=== PATIENT | female | born 1940 | race African-American/Black ===

== ENCOUNTER 2021-02-21 09:45 | Emergency (ER) | payer MEDICARE, OTHER ==
[~2021-02-21] VITALS: Ht 152.4 cm; Wt 63.0 kg
--- NOTE | 2021-02-21 10:28 | PHYS DOC ---
Past History Past Medical History: Diabetes Alcohol Use: Rarely General Adult EDM: Chief Complaint: MULTIPLE COMPLAINTS HPI: HPI: 80-year-old female presents with dizziness and decreased activity level. Patient tells me that she has not felt well for the last 5 days. She doesn't have any specific description other than feeling dizzy when she gets up and generally weak. The dizziness as a lightheaded, off-balance feeling. She has "aching all over which is probably arthritis." She did have a fall today where she got dizzy, leaned against the bed which moved a little bit and she slowly slumped to the floor. She has no injuries from this. The patient has had significantly decreased appetite. She is only been eating diabetic shakes. The patient was not taking any of her medications for an unknown amount time. She restarted her Metformin on Wednesday. She denies dysuria or increased urinary frequency. She denies nausea, vomiting, diarrhea. Review of Systems: Review of Systems: Constitutional: Denies fever or chills. Decreased appetite Eyes: Denies change in visual acuity HENT: Denies nasal congestion or sore throat Respiratory: Denies cough or shortness of breath Cardiovascular: Denies chest pain or edema GI: Denies abdominal pain, nausea, vomiting, bloody stools or diarrhea : Denies dysuria Musculoskeletal: Multijoint pain. Integument: Denies rash Neurologic: Dizziness. Denies headache, focal weakness or sensory changes Endocrine: Denies polyuria or polydipsia Lymphatic: Denies swollen glands Psychiatric: Denies depression or anxiety Physical Exam: PE: Constitutional: Well developed, well nourished, no acute distress, non-toxic appearance. [] HENT: Normocephalic, atraumatic, bilateral external ears normal, oropharynx moist, no oral exudates, nose normal. [] Eyes: PERRLA, EOMI, conjunctiva normal, no discharge. [] Neck: Normal range of motion, no tenderness, supple, no stridor. [] Cardiovascular: Heart rate regular rhythm, no murmur [] Lungs & Thorax: Bilateral breath sounds clear to auscultation [] Abdomen: Bowel sounds normal, soft, no tenderness, no masses, no pulsatile masses. [] Skin: Warm, dry, no erythema, no rash. [] Back: No tenderness, no CVA tenderness. [] Extremities: No tenderness, no cyanosis, no clubbing, ROM intact, no edema. [] Neurologic: Alert and oriented X 3, normal motor function, normal sensory function, no focal deficits noted. [] Psychologic: Affect normal, judgement normal, mood normal. [] Current Patient Data: Vital Signs: Vital Signs Date Time Temp Pulse Resp B/P (MAP) Pulse Ox O2 Delivery O2 Flow Rate FiO2 02/21/21 09:54 98.4 81 22 122/78 (93) 98 Room Air EKG: EKG: [] Radiology/Procedures: Radiology/Procedures: [] Impressions: XR CHEST 1V History: Reason: dizziness, right arm pain / Spl. Instructions: / History: Comparison: None. Findings: No consolidation or pleural effusion. Normal heart size. No pneumothorax. Impression: 1. No acute cardiopulmonary process. Electronically signed by: Nemesio Quesada DO (02/21/2021 10:43 AM) [id number] DICTATED AND SIGNED BY: NEMESIO QUESADA DO DATE: 02/21/21 1042 CC: JUSTA DIXON DO; HANNAH MELGAR MD ~MTH0 0 Heart Score: C/O Chest Pain: N/A Risk Factors: Risk Factors: DM, Current or recent (<one month) smoker, HTN, HLP, family history of CAD, obesity. Risk Scores: Score 0 - 3: 2.5% MACE over next 6 weeks - Discharge Home Score 4 - 6: 20.3% MACE over next 6 weeks - Admit for Clinical Observation Score 7 - 10: 72.7% MACE over next 6 weeks - Early Invasive Strategies Course & Med Decision Making: Course & Med Decision Making Pertinent Labs and Imaging studies reviewed. (See chart for details) The patient's labs are unremarkable. Her urinalysis still suggests urinary tract infection. The patient's only had 3 doses of Macrobid. I have advised that they continue this for the full 5 days and then have her urine retested. Family acknowledges this recommendation. 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 Family and patient also state verbal understanding. I do not see anything else concerning at this time. The patient is stable for discharge at this time. [] Marleny Disclaimer: Marleny Disclaimer: This electronic medical record was generated, in whole or in part, using a voice recognition dictation system. Departure Departure: Impression: Primary Impression: Fatigue Additional Impression: Sjogrens syndrome Disposition: HOME / SELF CARE / HOMELESS Condition: STABLE Referrals: HANNAH MELGAR MD (PCP) Patient Instructions: JUSTA Tamayo DO Feb 21, 2021 10:28
[2021-02-21 10:32] LABS: BASO % 0 % (0-3); EOS % 0 % (0-3); HEMATOCRIT 36.7 % (36.0-47.0); HEMOGLOBIN 12.3 g/dL (12.0-15.5); LYMPH # 1.6 x10^3/uL (1.0-4.8); LYMPH % 19 % (24-48); MEAN CORPUSCULAR HEMOGLOBIN 31 pg (25-35); MEAN CORPUSCULAR HGB CONC 34 g/dL (31-37); MEAN CORPUSCULAR VOLUME 92 fL (79-100); MONO # 0.4 x10^3/uL (0.0-1.1); MONO % 5 % (0-9); NEUT # 6.3 x10^3uL (1.8-7.7); NEUT % 75 % (31-73); PLATELET COUNT 205 x10^3/uL (140-400); RED BLOOD COUNT 3.99 x10^6/uL (3.50-5.40); RED CELL DISTRIBUTION WIDTH 13.4 % (11.5-14.5); WHITE BLOOD COUNT 8.3 x10^3/uL (4.0-11.0)
[2021-02-21 10:42] LABS: CALCIUM 9.4 mg/dL (8.5-10.1); CREATININE 0.9 mg/dL (0.6-1.0); GFR 72.5; POTASSIUM 3.9 mmol/L (3.5-5.1)
--- NOTE | 2021-02-21 10:45 | RAD ---
XR CHEST 1V History: Reason: dizziness, right arm pain / Spl. Instructions: / History: Comparison: None. Findings: No consolidation or pleural effusion. Normal heart size. No pneumothorax. Impression: 1. No acute cardiopulmonary process. Electronically signed by: Nemesio Quesada DO (02/21/2021 10:43 AM) [id number]
[2021-02-21 10:48] LABS: ALBUMIN 2.7 g/dL (3.4-5.0); ALBUMIN/GLOBULIN RATIO 0.5 (1.0-1.7); TOTAL BILIRUBIN 0.4 mg/dL (0.2-1.0); TOTAL PROTEIN 8.1 g/dL (6.4-8.2)
[2021-02-21 13:17] LABS: BILIRUBIN,URINE NEG (NEG); CLARITY,URINE HAZY; COLOR,URINE YELLOW; GLUCOSE,URINE NEG (NEG); NITRITE,URINE NEG (NEG)
[2021-02-21 13:21] LABS: BACTERIA,URINE MOD /HPF (0-FEW); SQUAMOUS EPITHELIAL CELL,UR MOD /LPF
--- NOTE | 2021-02-21 13:31 | EKG ---
[address] [address] Test Date: 2021-02-21 Test Time: 10:30:15 Pat Name: CHEYENNE BERG Department: Room: Gender: F [employer]: [place] : 1940 Requested By: JUSTA DIXON Order Number: [id number] Reading MD: Measurements Intervals [place] Rate: 61 P: 32 WI: 186 QRS: -1 QRSD: 84 T: 14 QT: 402 QTc: 410 Interpretive Statements SINUS RHYTHM LEFTWARD AXIS OTHERWISE NORMAL ECG RI6.02 No previous ECG available for comparison
[2021-02-21 14:00] VITALS: BP 132/74
== END 2021-02-21 14:00 | disposition home or self-care (01) ==
LOC: ER 09:45
DX: R42 Dizziness and giddiness (principal); M35.00 Sjogren syndrome, unspecified; R53.83 Other fatigue; E11.9 Type 2 diabetes mellitus without complications
CPT/HCPCS: 36415; 71045; 80053; 81001; 83880; 84484; 85025; 87086; 93005; 99285-25